=== PATIENT | female | born 1955 | race Caucasian/White ===

== ENCOUNTER 2017-12-09 11:01 | Observation (INO) ==
--- NOTE | 2017-12-09 11:19 | Emergency Department Note ---
Disposition Clinical Impression: Chest pain Disposition: Admitted As Inpatient Condition: Good General Adult HPI - General Chief complaint: ED Chest Pain Stated complaint: CP Time Seen by Provider: 12/09/17 11:04 Source: patient, family Limitations: no limitations Nursing Notes Reviewed: Yes Vital Signs Reviewed: Yes - History of Present Illness Pain Scale: 8 - Related Data Home Medications Medication Instructions Recorded Confirmed Amlodipine Besylate 10 mg PO DAILY 12/09/17 12/09/17 Cholecalciferol (D-3) [Vitamin D] 1,000 unit PO DAILY 12/09/17 12/09/17 Cyanocobalamin (Vitamin B-12) 1,000 mcg PO MOWEFR 12/09/17 12/09/17 [Vitamin B-12] Cyclobenzaprine HCl 5 mg PO BID PRN 12/09/17 12/09/17 Dicyclomine [Bentyl] 10 mg PO QID 12/09/17 12/09/17 Fluticasone Propionate Nasal 2 spr NS DAILY PRN 12/09/17 12/09/17 [Flonase] Gabapentin [Neurontin] 300 mg PO HS 12/09/17 12/09/17 Lidocaine Patch [Lidoderm 5% patch] 1 patch TD Q12H 12/09/17 12/09/17 Loratadine [Allergy Relief] 10 mg PO DAILY PRN 12/09/17 12/09/17 Meloxicam [Meloxicam] 15 mg PO DAILY 12/09/17 12/09/17 Nitroglycerin [Nitrostat] 0.4 mg SL Q5M PRN 12/09/17 12/09/17 Pantoprazole Sodium [Protonix] 40 mg PO DAILY 12/09/17 12/09/17 Sertraline [Zoloft] 100 mg PO DAILY 12/09/17 12/09/17 Warfarin [Coumadin] 3 mg PO Q48H 12/09/17 12/09/17 Warfarin [Coumadin] 4 mg PO Q48H 12/09/17 12/09/17 Allergies Allergy/AdvReac Type Severity Reaction Status Date / Time acetaminophen [From Percocet] AdvReac Nausea Verified 12/09/17 12:59 Estrogens AdvReac blood clots Verified 12/09/17 12:59 estrogens, conjugated AdvReac blood clots Verified 12/09/17 12:59 [From Premarin] Iodinated Contrast- Oral and AdvReac extremely Verified 12/09/17 12:59 IV Dye elevates [Iodinated Contrast Media - blood IV Dye] pressure, heart palpitations Medroxyprogesterone AdvReac blood clots Verified 12/09/17 12:59 Oxycodone AdvReac Nausea Verified 12/09/17 12:59 simvastatin AdvReac myalgias Verified 12/09/17 12:59 Past Medical History - Past Medical History Medical history: Reports: non-contributory, arthritis, asthma, CHF, DVT, hyperlipidemia, hypertension, osteoporosis, peripheral artery disease, pulmonary embolus Surgical history: Reports: angioplasty/stent, breast surgery, cholecystectomy, hysterectomy, orthopedic, other, other Psychiatric history: Reports: no psych history - Social History Smoking Status: Never smoker Smokeless Tobacco Status: No Alcohol use: Reports: none Drug use: Reports: none Physical Exam - General Limitations: no limitations General appearance: alert, in no apparent distress Course Vital Signs Temperature 98.3 F 12/09/17 11:03 Pulse Rate 72 12/09/17 11:03 Respiratory Rate 20 12/09/17 11:03 Blood Pressure 167/80 12/09/17 11:03 O2 Sat by Pulse Oximetry 94 12/09/17 11:03 Temperature 98.3 F 12/09/17 11:06 Pulse Rate 53 12/09/17 12:51 Respiratory Rate 18 12/09/17 14:35 Blood Pressure 135/66 12/09/17 14:35 O2 Sat by Pulse Oximetry 94 12/09/17 12:51 Oxygen Delivery Oxygen Delivery Nasal Cannula Medical Decision Making - [facility] Narrative Medical decision making narrative: Chest X-Ray 12/09/17 11:07 IMPRESSION: No acute process. D/ / Dash Nielsen MD / Dash Nielsen MD Interpreting Provider: Dash Nielsen MD 1300 hrs.: Initial troponin is negative. We talked about doing a repeat troponin on her. Her pain did start to come back her labs look good. However her onset of symptoms versus her first troponin are not within the timeframe that I expect the troponin to be positive for elevated. Talked about redoing a troponin in 2-3 hours her she prefers to be admitted so we will bring her into the hospital speaking with hospitalist for admission impression chest pain rule out ACS history of CHF stable. - Lab Data Result diagrams: 12/09/17 11:21 12/09/17 11:21 Lab Results 12/09/17 12/09/17 12/09/17 Range/Units 11:21 11:21 11:21 WBC 5.2 (4.3-11.1) K/mcL RBC 4.72 (3.82-4.97) M/mcL Hgb 13.9 (11.5-15.4) g/dL Hct 41.6 (35.3-44.9) % MCV 88.1 (83.0-100.0) fL MCH 29.4 (28.0-33.3) pg MCHC 33.4 (31.6-35.5) g/dL RDW 13.9 (11.5-14.5) % Plt Count 205 (140-400) K/mcL MPV 9.4 (9.4-12.4) fL Immature Gran % 0.2 (0-4) % Seg Neutrophils % 37.5 % Lymphocytes % 48.3 % Monocytes % 10.1 % Eosinophils % 3.1 % Basophils % 0.8 % Neutrophils # 2.0 (1.6-8.9) K/mcL Lymphocytes # 2.5 (0.6-4.6) K/mcL Monocytes # 0.5 (0.0-1.3) K/mcL Eosinophils # 0.2 (0.0-0.6) K/mcL Basophils # 0.0 (0.0-0.2) K/mcL PT 25.8 H (9.4-12.1) Seconds INR 2.4 APTT 45.2 H (26.0-36.0) Seconds D-Dimer 231 (0-500) ng/mLFEU Sodium (136-145) mEq/L Potassium (3.5-5.1) mEq/L Chloride (98-107) mEq/L Carbon Dioxide (23-29) mEq/L BUN (8-23) mg/dL Creatinine (0.60-1.20) mg/dL Est GFR ( Amer) (> 60) Est GFR (Non-Af Amer) (> 60) BUN/Creatinine Ratio (6-26) Glucose (70-105) mg/dL Calculated Osmolality (280-300) Calcium (8.6-10.3) mg/dL Troponin I (< 0.04) ng/mL B-Natriuretic Peptide 25 (Less than 100) pg/mL 12/09/ Range/Units 11:21 WBC (4.3-11.1) K/mcL RBC (3.82-4.97) M/mcL Hgb (11.5-15.4) g/dL Hct (35.3-44.9) % MCV (83.0-100.0) fL MCH (28.0-33.3) pg MCHC (31.6-35.5) g/dL RDW (11.5-14.5) % Plt Count (140-400) K/mcL MPV (9.4-12.4) fL Immature Gran % (0-4) % Seg Neutrophils % % Lymphocytes % % Monocytes % % Eosinophils % % Basophils % % Neutrophils # (1.6-8.9) K/mcL Lymphocytes # (0.6-4.6) K/mcL Monocytes # (0.0-1.3) K/mcL Eosinophils # (0.0-0.6) K/mcL Basophils # (0.0-0.2) K/mcL PT (9.4-12.1) Seconds INR APTT (26.0-36.0) Seconds D-Dimer (0-500) ng/mLFEU Sodium 139 (136-145) mEq/L Potassium 3.5 (3.5-5.1) mEq/L Chloride 106 (98-107) mEq/L Carbon Dioxide 25 (23-29) mEq/L BUN 15 (8-23) mg/dL Creatinine 0.64 (0.60-1.20) mg/dL Est GFR ( Amer) > 60 (> 60) Est GFR (Non-Af Amer) > 60 (> 60) BUN/Creatinine Ratio 23 (6-26) Glucose 124 H (70-105) mg/dL Calculated Osmolality 290 (280-300) Calcium 10.2 (8.6-10.3) mg/dL Troponin I < 0.03 (< 0.04) ng/mL B-Natriuretic Peptide (Less than 100) pg/mL Attestation Statement - Attestation Attestation: This documentation is done with the assistance of Dragon dictation. Despite efforts made to ensure accuracy, there may be inaccuracies in disability program navigator or spelling and typographical errors. I examined this patient and my medical decision-making was reviewed with the Resident Physician. I agree with the documented findings, disposition and treatment plan as described except to the extent set forth below. Patient seen and evaluated on arrival with Dr. Jo I agree with his evaluation and management plan, I supervised the care the patient's stay. Patient was going to cardiac rehabilitation today for CHF she had chest pain which she said was sharp in nature she took a nitroglycerin put on her oxygen did not change anything and agree had told her digits, over to here. She has had a history of CHF in the past coronary disease PE. She is not short of breath at this time. She has a [place] filter in place and is on Coumadin. We will do a cardiac workup also PE workup. She says she cannot take IVP dye causes her to have hypertension and headache. And then we will reassess. She is in agreement with plan. Most likely she will need admission.
[2017-12-09] MEDS ORDERED: Aspirin 81 MG TAB.CHEW PO ONE (11:20)
[2017-12-09] MEDS: Nitroglycerin 0.4 MG TAB.SUBL SL ONE ×2 (11:35→11:39)
--- NOTE | 2017-12-09 11:37 | Emergency Department Note ---
Disposition Clinical Impression: Chest pain Disposition: Admitted As Inpatient Condition: Good Referrals: Makayla Handy DO [Primary Care Provider] - Forms: ED Satisfaction Letter Time of Disposition: 14:03 Chest Pain HPI - General Chief Complaint: ED Chest Pain Stated Complaint: CP Time Seen by Provider: 12/09/17 11:04 Source: patient, family Limitations: no limitations Vital Signs Reviewed: Yes Nursing Notes Reviewed: Yes - History of Present Illness HPI Narrative: 62 yo female with history of hypertension, hyperlipidemia, and new diagnosis of CHF presents for evaluation of chest pain. Onset 45 minutes prior to arrival. Described as left chest heaviness with radiation to her back as well as to her left shoulder. Associate with diaphoresis. She took a single sublingual nitroglycerin at that time of referral prescription which did not improve her symptoms. PMH: Hypertension, hyperlipidemia, new diagnosis of CHF. Hx PE with chacorta filter in place; on coumadin. Commercial Correspondent: Dr. Howard. ROS: Positive: As above Negative: Fever, chills, nausea, vomiting, palpitations, unusual back pain, cough, no history of COPD and has never smoked, no abdominal pain, changes in bowel or bladder habits. No lightheadedness or headache. Severity scale (1-10): 0 - Related Data Home Medications Medication Instructions Recorded Confirmed Amlodipine Besylate 10 mg PO DAILY 12/09/17 12/09/17 Cholecalciferol (D-3) [Vitamin D] 1,000 unit PO DAILY 12/09/17 12/09/17 Cyanocobalamin (Vitamin B-12) 1,000 mcg PO MOWEFR 12/09/17 12/09/17 [Vitamin B-12] Cyclobenzaprine HCl 5 mg PO BID PRN 12/09/17 12/09/17 Dicyclomine [Bentyl] 10 mg PO QID 12/09/17 12/09/17 Fluticasone Propionate Nasal 2 spr NS DAILY PRN 12/09/17 12/09/17 [Flonase] Gabapentin [Neurontin] 300 mg PO HS 12/09/17 12/09/17 Lidocaine Patch [Lidoderm 5% patch] 1 patch TD Q12H 12/09/17 12/09/17 Loratadine [Allergy Relief] 10 mg PO DAILY PRN 12/09/17 12/09/17 Meloxicam [Meloxicam] 15 mg PO DAILY 12/09/17 12/09/17 Nitroglycerin [Nitrostat] 0.4 mg SL Q5M PRN 12/09/17 12/09/17 Pantoprazole Sodium [Protonix] 40 mg PO DAILY 12/09/17 12/09/17 Sertraline [Zoloft] 100 mg PO DAILY 12/09/17 12/09/17 Warfarin [Coumadin] 3 mg PO Q48H 12/09/17 12/09/17 Warfarin [Coumadin] 4 mg PO Q48H 12/09/17 12/09/17 Allergies Allergy/AdvReac Type Severity Reaction Status Date / Time acetaminophen [From Percocet] AdvReac Nausea Verified 12/09/17 12:59 Estrogens AdvReac blood clots Verified 12/09/17 12:59 estrogens, conjugated AdvReac blood clots Verified 12/09/17 12:59 [From Premarin] Iodinated Contrast- Oral and AdvReac extremely Verified 12/09/17 12:59 IV Dye elevates [Iodinated Contrast Media - blood IV Dye] pressure, heart palpitations Medroxyprogesterone AdvReac blood clots Verified 12/09/17 12:59 Oxycodone AdvReac Nausea Verified 12/09/17 12:59 simvastatin AdvReac myalgias Verified 12/09/17 12:59 All systems ED: reviewed and negative except as stated. Review of Systems: As Per HPI Chest Pain PMH - Past Medical History Medical history: Reports: non-contributory, arthritis, asthma, CHF, DVT, hyperlipidemia, hypertension, osteoporosis, peripheral artery disease, pulmonary embolus Surgical history: Reports: angioplasty/stent, breast surgery, cholecystectomy, hysterectomy, orthopedic, other, other Psychiatric history: Reports: no psych history - Social History Smoking Status: Never smoker Alcohol use: Reports: none Drug use: Reports: none Physical Exam Vital Signs Reviewed General: Patient is alert, oriented, and in no acute distress. Head: atraumatic, normocephalic Eye: normal appearance, no scleral icterus, no conjunctival injection ENT: mucous membranes moist, normal external ear exam Neck: normal inspection, trachea midline, full ROM Chest: normal inspection, symmetric chest rise Respiratory: Good respiratory effort. Bilateral breath sounds are clear without wheezing, crackles, or rhonchi. Cardiovascular: Regular rate and rhythm. No clicks, rubs, gallops. Systolic murmur. Normal heart sounds. Abdomen: Bowel sounds present normoactive x-4 quadrants. Abdomen is soft, nondistended, and nontender. No guarding or rebound. No organomegaly noted. Musculoskeletal: Spontaneously moving all extremities. Skin: warm, dry, intact. Neuro: Alert and oriented x4. Sensation light touch intact. Psych: Patient's affect is appropriate for situation. - General Limitations: no limitations General appearance: alert, in no apparent distress Course Course Narrative: PERC (+) by age, heart rate, history. Wells PE score 3.0 by heart rate, O2, history. Will d-dimer. EKG dated 12/09/17 at 11:11 interpreted as sinus rhythm with rate of 63. Normal intervals of MT 179, QRS was 6, QTC 433. Normal axis. T-wave inversion in leads V1 and V2 which are not new compared to previous EKG. Flattening T-wave in lead aVL not new compared to previous EKG. Compared to previous EKG dated showing no acute ischemic changes comparison. Patient took a signal sublingual nitroglycerin which did not improve her symptoms. Will repeat nitroglycerin trial as tolerated by her blood pressure. No acute ischemic changes on EKG. Chest x-ray unremarkable. Patient's initial troponin is within normal limits. This is, however, within the window with certainty. D-dimer lower limit of normal. EKG shows no acute ischemic changes. Patient chest pain improved with initial administration of morphine. Medicines returned; will re-dose morphine. I discussed the above with the patient and her family bedside. She agrees to admission for continued evaluation and management. Next I discussed the patient with the admitting hospitalist, Dr. Garcia, who agrees to accept the patient for chest pain rule out ACS. Chest X-Ray 12/09/17 11:07 IMPRESSION: No acute process. D/ / Dash Nielsen MD / Dash Nielsen MD Interpreting Provider: Dash Nielsen MD Vital Signs Temperature 98.3 F 12/09/17 11:03 Pulse Rate 72 12/09/17 11:03 Respiratory Rate 20 12/09/17 11:03 Blood Pressure 167/80 12/09/17 11:03 O2 Sat by Pulse Oximetry 94 12/09/17 11:03 Temperature 98.3 F 12/09/17 11:06 Pulse Rate 53 12/09/17 12:51 Respiratory Rate 18 12/09/17 12:51 Blood Pressure 133/70 12/09/17 12:51 O2 Sat by Pulse Oximetry 94 12/09/17 12:51 Oxygen Delivery Oxygen Delivery Nasal Cannula Chest Pain - Lab Data Result diagrams: 12/09/17 11:21 12/09/17 11:21 Lab Results 12/09/17 12/09/17 12/09/17 Range/Units 11:21 11:21 11:21 WBC 5.2 (4.3-11.1) K/mcL RBC 4.72 (3.82-4.97) M/mcL Hgb 13.9 (11.5-15.4) g/dL Hct 41.6 (35.3-44.9) % MCV 88.1 (83.0-100.0) fL MCH 29.4 (28.0-33.3) pg MCHC 33.4 (31.6-35.5) g/dL RDW 13.9 (11.5-14.5) % Plt Count 205 (140-400) K/mcL MPV 9.4 (9.4-12.4) fL Immature Gran % 0.2 (0-4) % Seg Neutrophils % 37.5 % Lymphocytes % 48.3 % Monocytes % 10.1 % Eosinophils % 3.1 % Basophils % 0.8 % Neutrophils # 2.0 (1.6-8.9) K/mcL Lymphocytes # 2.5 (0.6-4.6) K/mcL Monocytes # 0.5 (0.0-1.3) K/mcL Eosinophils # 0.2 (0.0-0.6) K/mcL Basophils # 0.0 (0.0-0.2) K/mcL PT 25.8 H (9.4-12.1) Seconds INR 2.4 APTT 45.2 H (26.0-36.0) Seconds D-Dimer 231 (0-500) ng/mLFEU Sodium (136-145) mEq/L Potassium (3.5-5.1) mEq/L Chloride (98-107) mEq/L Carbon Dioxide (23-29) mEq/L BUN (8-23) mg/dL Creatinine (0.60-1.20) mg/dL Est GFR ( Amer) (> 60) Est GFR (Non-Af Amer) (> 60) BUN/Creatinine Ratio (6-26) Glucose (70-105) mg/dL Calculated Osmolality (280-300) Calcium (8.6-10.3) mg/dL Troponin I (< 0.04) ng/mL B-Natriuretic Peptide 25 (Less than 100) pg/mL 12/09/17 Range/Units 11:21 WBC (4.3-11.1) K/mcL RBC (3.82-4.97) M/mcL Hgb (11.5-15.4) g/dL Hct (35.3-44.9) % MCV (83.0-100.0) fL MCH (28.0-33.3) pg MCHC (31.6-35.5) g/dL RDW (11.5-14.5) % Plt Count (140-400) K/mcL MPV (9.4-12.4) fL Immature Gran % (0-4) % Seg Neutrophils % % Lymphocytes % % Monocytes % % Eosinophils % % Basophils % % Neutrophils # (1.6-8.9) K/mcL Lymphocytes # (0.6-4.6) K/mcL Monocytes # (0.0-1.3) K/mcL Eosinophils # (0.0-0.6) K/mcL Basophils # (0.0-0.2) K/mcL PT (9.4-12.1) Seconds INR APTT (26.0-36.0) Seconds D-Dimer (0-500) ng/mLFEU Sodium 139 (136-145) mEq/L Potassium 3.5 (3.5-5.1) mEq/L Chloride 106 (98-107) mEq/L Carbon Dioxide 25 (23-29) mEq/L BUN 15 (8-23) mg/dL Creatinine 0.64 (0.60-1.20) mg/dL Est GFR ( Amer) > 60 (> 60) Est GFR (Non-Af Amer) > 60 (> 60) BUN/Creatinine Ratio 23 (6-26) Glucose 124 H (70-105) mg/dL Calculated Osmolality 290 (280-300) Calcium 10.2 (8.6-10.3) mg/dL Troponin I < 0.03 (< 0.04) ng/mL B-Natriuretic Peptide (Less than 100) pg/mL Heart Score - Score History: Moderately Suspicious EKG: Non Specific repolarisation Disturbance Age: 45-65 Risk Factors: Equal/Greater than 3 risk factor or history of atherosclerotic disease Troponin: Less than normal limit HEART Score Total: 5
[2017-12-09 11:42] LABS: Basophils % 0.8 %; Eosinophils # 0.2 K/mcL (0.0-0.6); Eosinophils % 3.1 %; Hematocrit 41.6 % (35.3-44.9); Hemoglobin 13.9 g/dL (11.5-15.4); Immature Granulocytes % 0.2 % (0-4); Lymphocytes # 2.5 K/mcL (0.6-4.6); Lymphocytes % 48.3 %; Mean Corpuscular HGB Conc 33.4 g/dL (31.6-35.5); Mean Corpuscular Hemoglobin 29.4 pg (28.0-33.3); Mean Corpuscular Volume 88.1 fL (83.0-100.0); Mean Platelet Volume 9.4 fL (9.4-12.4); Monocytes # 0.5 K/mcL (0.0-1.3); Monocytes % 10.1 %; Platelet Count 205 K/mcL (140-400); Red Blood Count 4.72 M/mcL (3.82-4.97); Red Cell Distribution Width 13.9 % (11.5-14.5); Segmented Neutrophils % 37.5 %
[2017-12-09 11:51] LABS: INR 2.4; Prothrombin Time 25.8 Seconds (9.4-12.1)
[2017-12-09] MEDS ORDERED: *HR* Morphine 2 MG/ML SYRINGE IVP ONE ×2 (11:53→13:34)
[2017-12-09 11:54] LABS: Activated Partial Thrombo Time 45.2 Seconds (26.0-36.0)
[2017-12-09] MEDS ORDERED: Ondansetron 4 MG/2 ML VIAL IVP ONE (11:54)
[2017-12-09 11:55] LABS: Troponin I < 0.03 ng/mL (< 0.04)
[2017-12-09 11:56] LABS: BUN/Creatinine Ratio 23 (6-26); Blood Urea Nitrogen 15 mg/dL (8-23); Calcium 10.2 mg/dL (8.6-10.3); Carbon Dioxide 25 mEq/L (23-29); Chloride 106 mEq/L (98-107); Glucose 124 mg/dL (70-105); Osmolality,Calculated 290 (280-300); Potassium 3.5 mEq/L (3.5-5.1); Sodium 139 mEq/L (136-145); eGFR For African Americans > 60 (> 60); eGFR For Non-African Americans > 60 (> 60)
[2017-12-09] MEDS ORDERED: Naloxone 0.4 MG/ML INJ IVP PRN (14:07)
[2017-12-09] MEDS ORDERED: Fluticasone Propionate Nasal 50 MCG/SPRAY BOTTLE NS PRN (14:09)
[2017-12-09] MEDS ORDERED: Nitroglycerin 0.4 MG TAB.SUBL SL PRN (14:09)
[2017-12-09] MEDS ORDERED: Loratadine 10 MG TABLET PO PRN (14:09)
[2017-12-09] MEDS ORDERED: Cyanocobalamin (B-12) 1,000 MCG TABLET PO SCH (14:15)
[2017-12-09] MEDS ORDERED: *HR* Warfarin 2 MG TABLET PO SCH (14:15)
--- NOTE | 2017-12-09 14:22 | Internal Med History&Physical ---
Date of Encounter: 12/09/17 Time of Encounter: 14:20 Internal Medicine - H&P: HPI Chief complaint: chest pain Admitted From: Home Plans for Post Hospital Care: Home History of present illness: Ms. King is a 62 year old female with history of recently diagnosed heart failure who was getting ready to go to cardiopulmonary rehabilitation today when she developed chest pain. Described it as left-sided and radiated to her back as well as her left shoulder. She took one nitroglycerin sublingual that did not help much. Since nausea but no vomiting. Denied any headache no blurry vision no abdominal pain no changes in bowel movement. Past Med Surg Social Fam HX - Past Medical History Medical history: non-contributory, arthritis, asthma, CHF, DVT, hyperlipidemia, hypertension, osteoporosis, peripheral artery disease, pulmonary embolus Additional medical history: PE,Heart murmur,Atrial septal aneurysm with shunt, sleep apnea Psychiatric history: no psych history - Past Surgical History Surgical History: angioplasty/stent, breast surgery, cholecystectomy, hysterectomy, orthopedic, other, other Additional surgical history: chacorta filter,colonoscopy - Social History Smoking Status: Never smoker Smokeless Tobacco Status: No Alcohol use: none Drug use: none - Family History Father Living Status: Hx Family Cardiac Disorders: Yes (Mother, Father had aneurysm) Hx Family Respiratory Disorders: Yes (mother-copd) Hx Family Cancer: Yes (father-lung, aunts-breast cancer) Hx Family GI Disorders: Yes (mother-diverticulitis) Hx Family Endocrine Disorder: Yes (mother-hypothyroidism) Hx Family Neuromuscular Disorders: Yes (mother and brother-neuropathy) Hx Family Neurologic Disorders: Yes (mother-TIA's) Hx Family HEENT Disorders: No Hx Family Autoimmune Disorders: Yes (brother-lupus) Internal Medicine - H&P: Meds Amlodipine Besylate 10 mg PO DAILY 12/09/17 [History] Cholecalciferol (D-3) [Vitamin D] 1,000 unit PO DAILY 12/09/17 [History] Cyanocobalamin (Vitamin B-12) [Vitamin B-12] 1,000 mcg PO MOWEFR 12/09/17 [ History] Cyclobenzaprine HCl 5 mg PO BID PRN 12/09/17 [History] Dicyclomine [Bentyl] 10 mg PO QID 12/09/17 [History] Fluticasone Propionate Nasal [Flonase] 2 spr NS DAILY PRN 12/09/17 [History] Gabapentin [Neurontin] 300 mg PO HS 12/09/17 [History] Lidocaine Patch [Lidoderm 5% patch] 1 patch TD Q12H 12/09/17 [History] Loratadine [Allergy Relief] 10 mg PO DAILY PRN 12/09/17 [History] Meloxicam [Meloxicam] 15 mg PO DAILY 12/09/17 [History] Nitroglycerin [Nitrostat] 0.4 mg SL Q5M PRN 12/09/17 [History] Pantoprazole Sodium [Protonix] 40 mg PO DAILY 12/09/17 [History] Sertraline [Zoloft] 100 mg PO DAILY 12/09/17 [History] Warfarin [Coumadin] 3 mg PO Q48H 12/09/17 [History] Warfarin [Coumadin] 4 mg PO Q48H 12/09/17 [History] 3 Allergy/AdvReac Type Severity Reaction Status Date / Time acetaminophen [From Percocet] AdvReac Nausea Verified 12/09/17 12:59 Estrogens AdvReac blood clots Verified 12/09/17 12:59 estrogens, conjugated AdvReac blood clots Verified 12/09/17 12:59 [From Premarin] Iodinated Contrast- Oral and AdvReac extremely Verified 12/09/17 12:59 IV Dye elevates [Iodinated Contrast Media - blood IV Dye] pressure, heart palpitations Medroxyprogesterone AdvReac blood clots Verified 12/09/17 12:59 Oxycodone AdvReac Nausea Verified 12/09/17 12:59 simvastatin AdvReac myalgias Verified 12/09/17 12:59 All Systems PM: A 10-system review of systems was performed and is negative for pertinent findings except as documented above in the HPI. - Constitutional Vitals: Temp Pulse Resp BP Pulse Ox 98.3 F 53 18 133/70 94 12/09/17 11:06 12/09/17 12:51 12/09/17 12:51 12/09/17 12:51 12/09/17 12:51 - Head Head exam: Present: atraumatic, normocephalic - Eye Eye exam: Present: PERRL, conjuntiva pink, sclera anicteric Pupils: Present: PERRL - Neck Neck exam general surgery: Present: supple, trachea midline. Absent: lymphadenopathy - Respiratory Respiratory exam: Present: CTAB. Absent: accessory muscle use, rales, rhonchi, wheezes - Cardiovascular Cardiovascular exam: Present: RRR, +S1, +S2. Absent: diastolic murmur, gallop, rubs, systolic murmur - GI/Abdominal GI/Abdominal exam: Present: normal bowel sounds, soft, no peritoneal signs. Absent: distended, tenderness - Extremities Exam Extremities exam: Present: warm, radial pulses palpable and symmetrical. Absent : calf tenderness, cyanotic, pedal edema - Neurological Exam Neurological exam: Present: CN II-XII intact, oriented X3, no focal deficits. Absent: pronater drift, facial droop, speech deficit Internal Med - H&P Results - Labs CBC & Chem 7: 12/09/17 11:21 12/09/17 11:21 - Assessment and plan (1) Chest pain Current Visit: Yes Status: Acute Assessment and plan: To rule out acute coronary syndrome Initial workup negative Telemetry monitoring Serial troponins Q6h for 3 sets Aspirin, metoprolol, Lipitor, nitrates when necessary We will get cardiac nuclear stress test for further evaluation EKG in the morning Fasting lipid profile Follow clinically Qualifiers: Qualified Code(s): R07.9 - Chest pain, unspecified (2) Chest pain Current Visit: Yes Status: Acute Qualifiers: Qualified Code(s): R07.9 - Chest pain, unspecified (3) Congestive heart failure Current Visit: Yes Status: Acute Assessment and plan: Recently diagnosed. Within an echo report Patient is not volume overloaded Continue current management Qualifiers: Qualified Code(s): I50.9 - Heart failure, unspecified (4) Personal history of DVT (deep vein thrombosis) Current Visit: Yes Status: Acute Assessment and plan: On chronic anticoagulation with Coumadin INR is therapeutic. Monitor (5) History of pulmonary embolism Current Visit: Yes Status: Acute Assessment and plan: Continue Coumadin for goal INR 2-3 (6) Obstructive sleep apnea Current Visit: Yes Status: Acute Assessment and plan: Continue CPAP daily at bedtime (7) History of hypertension Current Visit: Yes Status: Acute (8) Hyperlipidemia Current Visit: Yes Status: Acute Qualifiers: Qualified Code(s): E78.5 - Hyperlipidemia, unspecified (9) DVT prophylaxis Current Visit: Yes Status: Acute Assessment and plan: Already on Coumadin - Time Spent With Patient Total time spent is greater than 50% in coordination of care (as documented) at patient's floor/unit and/or counseling patient:
[2017-12-09] MEDS ORDERED: Warfarin perPT PO PRN (18:00)
[2017-12-09] MEDS ORDERED: *HR* Warfarin 2 MG TABLET PO ONE (18:00)
[2017-12-09] MEDS: Gabapentin 300 MG CAPSULE PO SCH (20:04)
[2017-12-10] MEDS ORDERED: Regadenoson 0.4 MG/5 ML SYRINGE IVP ONE (05:12)
[2017-12-10 05:37] LABS: Basophils # 0.1 K/mcL (0.0-0.2); Basophils % 0.9 %; Eosinophils # 0.2 K/mcL (0.0-0.6); Eosinophils % 4.1 %; Hematocrit 39.6 % (35.3-44.9); Hemoglobin 13.4 g/dL (11.5-15.4); Immature Granulocytes % 0.2 % (0-4); Lymphocytes # 2.3 K/mcL (0.6-4.6); Lymphocytes % 41.7 %; Mean Corpuscular HGB Conc 33.8 g/dL (31.6-35.5); Mean Corpuscular Hemoglobin 30.5 pg (28.0-33.3); Mean Corpuscular Volume 90.2 fL (83.0-100.0); Mean Platelet Volume 9.2 fL (9.4-12.4); Monocytes # 0.7 K/mcL (0.0-1.3); Monocytes % 12.1 %; Neutrophils # 2.3 K/mcL (1.6-8.9); Platelet Count 190 K/mcL (140-400); Red Blood Count 4.39 M/mcL (3.82-4.97); Red Cell Distribution Width 13.8 % (11.5-14.5)
[2017-12-10 05:42] LABS: INR 2.7; Prothrombin Time 29.8 Seconds (9.4-12.1)
[2017-12-10 05:54] LABS: BUN/Creatinine Ratio 25 (6-26); Blood Urea Nitrogen 17 mg/dL (8-23); Calcium 9.5 mg/dL (8.6-10.3); Carbon Dioxide 28 mEq/L (23-29); Chloride 106 mEq/L (98-107); Chol/HDL Ratio 6.1 (0-4.9); Cholesterol 212 mg/dL (< 200); Glucose 113 mg/dL (70-105); HDL Cholesterol 35 mg/dL (40-59); LDL Cholesterol,Calculated 122 mg/dL (0-99); Magnesium 2.1 mg/dL (1.6-2.6); Osmolality,Calculated 290 (280-300); Phosphorous 3.6 mg/dL (2.7-4.5); Potassium 3.6 mEq/L (3.5-5.1); Sodium 139 mEq/L (136-145); Triglycerides 274 mg/dL (< 150); eGFR For African Americans > 60 (> 60); eGFR For Non-African Americans > 60 (> 60)
--- NOTE | 2017-12-10 09:19 | Electrocardiograph Report ---
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
[2017-12-10] MEDS: Cholecalciferol (D-3) 1,000 UNIT TABLET PO SCH (10:26)
[2017-12-10] MEDS: amLODIPine 5 MG TABLET PO SCH (10:26)
--- NOTE | 2017-12-10 14:21 | Discharge Summary ---
Orders not resulted at time of discharge: Pending orders 12/10/17 06:00 ECG 12 lead ECG [ECG] AM 0612/10/17 06:30 NM steffen perf SPECT multi [NM] Routine 12/11/17 04:00 PT/INR [Prothrombin Time INR] [COAG] AM 0400 12/12/17 04:00 PT/INR [Prothrombin Time INR] [COAG] AM 0400 12/13/17 04:00 PT/INR [Prothrombin Time INR] [COAG] AM 0400 12/14/17 04:00 PT/INR [Prothrombin Time INR] [COAG] AM 040 Date of Encounter: 12/10/17 Time of Encounter: 14:18 - Discharge Diagnosis (1) Chest pain Priority: Primary Status: Acute (2) Congestive heart failure Priority: Secondary Status: Acute Qualifiers: Heart failure type: unspecified Heart failure chronicity: chronic Qualified Code(s): I50.9 - Heart failure, unspecified (3) History of hypertension Priority: Secondary Status: Acute (4) History of pulmonary embolism Priority: Secondary Status: Acute (5) Hyperlipidemia Priority: Secondary Status: Acute Qualifiers: Hyperlipidemia type: unspecified Qualified Code(s): E78.5 - Hyperlipidemia , unspecified (6) Obstructive sleep apnea Priority: Secondary Status: Acute (7) Personal history of DVT (deep vein thrombosis) Priority: Secondary Status: Acute Hospital course: Ms. King is a 62 year old female history of arthritis asthma CHF DVT hyperlipidemia hypertension osteoporosis PAD presented to the ER with left- sided chest pain that radiated to her back and left shoulder. She did take nitroglycerin but it did not help. Chest x-ray no acute process. Troponins were negative patient underwent cardiac stress test which was negative for any ischemia or infarct EKG was sinus rhythm no ST-T wave abnormalities. D-dimer within normal limits patient is adequately anticoagulated on Coumadin with INR 2.7 Patient is unable to take statins due to myalgias. We will continue with home medications advised patient to follow-up with primary care provider/ cardiology since these providers know her best and can adjust medication as needed. Advised patient to return to ER if chest pain recurs. Patient has not had any chest pain during admission She is hemodynamically stable at this time and ready for discharge Discharge discussed with: patient - Time Spent with Patient Total time spent providing and/or coordinating discharge services: - Discharge Medications Home Medications: Amlodipine Besylate 10 mg PO DAILY 12/09/17 [History] Cholecalciferol (D-3) [Vitamin D] 1,000 unit PO DAILY 12/09/17 [History] Cyanocobalamin (Vitamin B-12) [Vitamin B-12] 1,000 mcg PO MOWEFR 12/09/17 [ History] Cyclobenzaprine HCl 5 mg PO BID PRN 12/09/17 [History] Dicyclomine [Bentyl] 10 mg PO QID 12/09/17 [History] Fluticasone Propionate Nasal [Flonase] 2 spr NS DAILY PRN 12/09/17 [History] Gabapentin [Neurontin] 300 mg PO HS 12/09/17 [History] Lidocaine Patch [Lidoderm 5% patch] 1 patch TD Q12H 12/09/17 [History] Loratadine [Allergy Relief] 10 mg PO DAILY PRN 12/09/17 [History] Meloxicam 15 mg PO DAILY 12/09/17 [History] Nitroglycerin [Nitrostat] 0.4 mg SL Q5M PRN 12/09/17 [History] Pantoprazole Sodium [Protonix] 40 mg PO DAILY 12/09/17 [History] Pantoprazole [Protonix] 40 mg IV DAILY 12/09/17 [History] Sertraline [Zoloft] 100 mg PO DAILY 12/09/17 [History] Sertraline [Zoloft] 100 mg PO DAILY 12/09/17 [History] Warfarin [Coumadin] 3 mg PO Q48H 12/09/17 [History] Warfarin [Coumadin] 4 mg PO Q48H 12/09/17 [History] Allergies/Adverse Reactions: 3 Allergy/AdvReac Type Severity Reaction Status Date / Time acetaminophen [From Percocet] AdvReac Nausea Verified 12/09/17 12:59 Estrogens AdvReac blood clots Verified 12/09/17 12:59 estrogens, conjugated AdvReac blood clots Verified 12/09/17 12:59 [From Premarin] Iodinated Contrast- Oral and AdvReac extremely Verified 12/09/17 12:59 IV Dye elevates [Iodinated Contrast Media - blood IV Dye] pressure, heart palpitations Medroxyprogesterone AdvReac blood clots Verified 12/09/17 12:59 Oxycodone AdvReac Nausea Verified 12/09/17 12:59 simvastatin AdvReac myalgias Verified 12/09/17 12:59 Date of admission: 12/09/17 13:54 Primary care physician: Makayla Handy DO Discharging clinician: Macy Barba Anticipated date of discharge: 12/10/17 - Constitutional Vitals: Temp Pulse Resp BP Pulse Ox 98.2 F 54 16 126/72 90 12/10/17 11:06 12/10/17 11:06 12/10/17 11:06 12/10/17 11:06 12/10/17 11:06 General appearance: Present: A&O X 3 - Head Head exam: Present: atraumatic, normocephalic - Eye Eye exam: Present: PERRL, conjuntiva pink, sclera anicteric Pupils: Present: PERRL - Neck Neck exam general surgery: Present: supple, trachea midline. Absent: lymphadenopathy - Respiratory Respiratory exam: Present: CTAB. Absent: accessory muscle use, rales, rhonchi, wheezes - Cardiovascular Cardiovascular exam: Present: RRR, +S1, +S2. Absent: diastolic murmur, gallop, rubs, systolic murmur - GI/Abdominal GI/Abdominal exam: Present: normal bowel sounds, soft, no peritoneal signs. Absent: distended, tenderness - Extremities Exam Extremities exam: Present: warm, radial pulses palpable and symmetrical. Absent : calf tenderness, cyanotic, pedal edema - Neurological Exam Neurological exam: Present: CN II-XII intact, oriented X3, no focal deficits. Absent: pronater drift, facial droop, speech deficit - Skin Skin exam: Present: dry, intact - Patient Status Disposition: Home, Self-Care Condition: Good Overall status at discharge: patient is back to baseline - Discharge Instructions Instructions: Chest Pain (DC) Follow Up With: Makayla Handy DO [Primary Care Provider] - Forms: ED Satisfaction Letter Additional Instructions: Follow-up appointments: If there is not an appointment listed below, please call your physician and schedule a follow-up appointment. If you have congestive heart failure and your symptoms return, make an appointment with your physician. Medication List: Carry an up to date list of medications you are taking at all time. We have given you an updated medication list including any new medications that you have been prescribed. Please provide that list to your primary provider Symptoms: If your condition changes or you experience any of the following symptoms, notify your physician immediately: Unusual or worsening pain, fever, persistent nausea and vomiting, bleeding, increase in swelling (especially in your legs), sudden weight gain, extreme dizziness, chest pain, increased drainage or redness from a wound or incision. Go to the emergency department if you experience a problem with breathing. Weights: If you have a history of swelling or shortness of breath, weigh yourself daily and notify your physician if you have a weight gain of two or more pounds in one day or 5 or more pounds in a week. If you experience any of the warning signs for stroke: Sudden numbness or weakness of the face, arm or leg; especially on one side of the body, sudden confusion, trouble speaking or understanding, sudden trouble seeing in one or both eyes, sudden trouble walking, dizziness, loss of balance or coordination, sudden sever headache with no cause; Call 911 or go to the emergency room. Stroke is a medical emergency. Some risk factors for stroke: Age, cigarette smoking, diabetes, excessive alcohol consumption, family history , high blood pressure, overweight, physical inactivity, prior stroke, heart attack, diagnosis of carotid artery stenosis or other artery disease. If you smoke, STOP: Smoking or tobacco use significantly increases your risk of heart and lung disease. Your chance of disease greatly increases if you continue to smoke. For more information, call the [place] tobacco quit line for smoking cessation QUIT-NOW ( ) - Diet and Activity Activity: wear oxygen at night Diet: low fat, low cholesterol - VTE Documentation of Mechanical Device: Intermittent pneumatic compression device
--- NOTE | 2017-12-10 15:16 | Internal Med Progress Note ---
Date of Encounter: 12/10/17 Time of Encounter: 15:14 - Assessment and plan (1) Chest pain Current Visit: Yes Status: Acute Assessment and plan: 1 patient underwent cardiac stress test which was negative for ischemia or infarct no chest pain at this time Asians unable to take statins due to myalgias diet control Continues cardiac monitoring Qualifiers: Chest pain type: unspecified Qualified Code(s): R07.9 - Chest pain, unspecified (2) Congestive heart failure Current Visit: Yes Status: Acute Assessment and plan: 1 does not appear to be fluid overloaded chest x-ray within normal limits We will check an echo patient does have low SPO2 Qualifiers: Heart failure type: unspecified Heart failure chronicity: chronic Qualified Code(s): I50.9 - Heart failure, unspecified (3) History of hypertension Current Visit: Yes Status: Acute Assessment and plan: Presently controlled we will continue his home medications (4) History of pulmonary embolism Current Visit: Yes Status: Acute Assessment and plan: Patient is adequately anticoagulated on Coumadin 2.7 d-dimer within normal limits (5) Hyperlipidemia Current Visit: Yes Status: Acute Assessment and plan: Patient unable to tolerate statins diet control Qualifiers: Hyperlipidemia type: unspecified Qualified Code(s): E78.5 - Hyperlipidemia , unspecified (6) Obstructive sleep apnea Current Visit: Yes Status: Acute Assessment and plan: Continue with CPAP (7) Personal history of DVT (deep vein thrombosis) Current Visit: Yes Status: Acute Assessment and plan: Continue with Coumadin - Time Spent With Patient Total time spent is greater than 50% in coordination of care (as documented) at patient's floor/unit and/or counseling patient: - Subjective Interval history: As the patient is not having any chest pain she did undergo a reticulocyte stress test which was negative for ischemia or infarct however did note the patient's had some low, I suspect that this may be chronic however I will check a echo induced 6 minute walk. Did discuss with this patient to verbalized understanding and agreement. - Constitutional Vitals: Temp Pulse Resp BP Pulse Ox 98.2 F 55 16 126/72 92 12/10/17 11:06 12/10/17 14:42 12/10/17 11:06 12/10/17 11:06 12/10/17 14:42 General appearance: Present: A&O X 3 - Head Head exam: Present: atraumatic, normocephalic - Eye Eye exam: Present: PERRL, conjuntiva pink, sclera anicteric Pupils: Present: PERRL - Neck Neck exam general surgery: Present: supple, trachea midline. Absent: lymphadenopathy - Respiratory Respiratory exam: Present: CTAB. Absent: accessory muscle use, rales, rhonchi, wheezes - Cardiovascular Cardiovascular exam: Present: RRR, +S1, +S2. Absent: diastolic murmur, gallop, rubs, systolic murmur - GI/Abdominal GI/Abdominal exam: Present: normal bowel sounds, soft, no peritoneal signs. Absent: distended, tenderness - Extremities Exam Extremities exam: Present: warm, radial pulses palpable and symmetrical. Absent : calf tenderness, cyanotic, pedal edema - Neurological Exam Neurological exam: Present: CN II-XII intact, oriented X3, no focal deficits. Absent: pronater drift, facial droop, speech deficit - Skin Skin exam: Present: dry, intact Internal Medicine: Result - Labs CBC & Chem 7: 12/10/17 05:20 12/10/17 05:20 Labs: Short CBC 12/10/17 Range/Units 05:20 WBC 5.6 (4.3-11.1) K/mcL Hgb 13.4 (11.5-15.4) g/dL Hct 39.6 (35.3-44.9) % Plt Count 190 (140-400) K/mcL Neutrophils # 2.3 (1.6-8.9) K/mcL BMP 12/10/17 05:20 Sodium 139 Potassium 3.6 Chloride 106 Carbon Dioxide 28 BUN 17 Creatinine 0.67 Glucose 113 H Calcium 9.5 Cardiac Enzymes 12/09/17 12/09/17 12/10/17 Range/Units 17:14 22:56 05:20 Troponin I < 0.03 < 0.03 < 0.03 (< 0.04) ng/mL - ABG Interpretation ABG results: PT/INR, D-dimer PT 29.8 Seconds (9.4-12.1) H 12/10/17 05:20 D-Dimer 231 ng/mLFEU (0-500) 12/09/17 11:21 - VTE Documentation of Mechanical Device: Intermittent pneumatic compression device Consult Discharge Plan - Plan Instructions: Chest Pain (DC) Additional Instructions: Follow-up appointments: If there is not an appointment listed below, please call your physician and schedule a follow-up appointment. If you have congestive heart failure and your symptoms return, make an appointment with your physician. Medication List: Carry an up to date list of medications you are taking at all time. We have given you an updated medication list including any new medications that you have been prescribed. Please provide that list to your primary provider Symptoms: If your condition changes or you experience any of the following symptoms, notify your physician immediately: Unusual or worsening pain, fever, persistent nausea and vomiting, bleeding, increase in swelling (especially in your legs), sudden weight gain, extreme dizziness, chest pain, increased drainage or redness from a wound or incision. Go to the emergency department if you experience a problem with breathing. Weights: If you have a history of swelling or shortness of breath, weigh yourself daily and notify your physician if you have a weight gain of two or more pounds in one day or 5 or more pounds in a week. If you experience any of the warning signs for stroke: Sudden numbness or weakness of the face, arm or leg; especially on one side of the body, sudden confusion, trouble speaking or understanding, sudden trouble seeing in one or both eyes, sudden trouble walking, dizziness, loss of balance or coordination, sudden sever headache with no cause; Call 911 or go to the emergency room. Stroke is a medical emergency. Some risk factors for stroke: Age, cigarette smoking, diabetes, excessive alcohol consumption, family history , high blood pressure, overweight, physical inactivity, prior stroke, heart attack, diagnosis of carotid artery stenosis or other artery disease. If you smoke, STOP: Smoking or tobacco use significantly increases your risk of heart and lung disease. Your chance of disease greatly increases if you continue to smoke. For more information, call the [place] tobacco quit line for smoking cessation QUIT-NOW ( ) Referrals: Makayla Handy DO [Primary Care Provider] -
[2017-12-10] MEDS: Ipratropium/Albuterol Neb 3 ML IH SCH ×2 (16:50→22:40)
[2017-12-10] MEDS ORDERED: *HR* Warfarin 2 MG TABLET PO ONE (18:00)
[2017-12-10] MEDS: Gabapentin 300 MG CAPSULE PO SCH (20:46)
[2017-12-10] MEDS ORDERED: Gabapentin 300 MG CAPSULE PO SCH (21:04)
[2017-12-10] MEDS ORDERED: Gabapentin 300 MG CAPSULE PO ONE (21:05)
[2017-12-11] MEDS: Ipratropium/Albuterol Neb 3 ML IH SCH ×2 (03:23→10:46)
[2017-12-11 05:59] LABS: Prothrombin Time 32.7 Seconds (9.4-12.1)
[2017-12-11] MEDS: Cholecalciferol (D-3) 1,000 UNIT TABLET PO SCH (08:58)
[2017-12-11] MEDS: amLODIPine 5 MG TABLET PO SCH (08:58)
[2017-12-11 12:03] VITALS: BP 143/72
--- NOTE | 2017-12-11 14:01 | Discharge Summary ---
- NOTES TO OUTPATIENT PROVIDER Notes to Outpatient Provider: H and presented with chest pain troponins were negative 3 she underwent cardiac stress test which was negative for any ischemia or infarct. She did qualify for home O2 Orders not resulted at time of discharge: Pending orders 12/10/17 06:00 ECG 12 lead ECG [ECG] AM 0600 12/10/17 06:30 NM steffen perf SPECT multi [NM] Routine 12/12/17 04:00 PT/INR [Prothrombin Time INR] [COAG] AM 0400 12/13/17 04:00 PT/INR [Prothrombin Time INR] [COAG] AM 0400 12/14/17 04:00 PT/INR [Prothrombin Time INR] [COAG] AM 040 Date of Encounter: 12/11/17 Time of Encounter: 14:01 - Discharge Diagnosis (1) Chest pain Priority: Primary Status: Acute Qualifiers: Chest pain type: unspecified Qualified Code(s): R07.9 - Chest pain, unspecified (2) Congestive heart failure Priority: Secondary Status: Acute Qualifiers: Heart failure type: unspecified Heart failure chronicity: chronic Qualified Code(s): I50.9 - Heart failure, unspecified (3) History of hypertension Priority: Secondary Status: Acute (4) History of pulmonary embolism Priority: Secondary Status: Acute (5) Hyperlipidemia Priority: Secondary Status: Acute Qualifiers: Hyperlipidemia type: unspecified Qualified Code(s): E78.5 - Hyperlipidemia , unspecified (6) Obstructive sleep apnea Priority: Secondary Status: Acute Hospital course: Ms. King is a 62 year old female past medical history of asthma CHF DVT hyperlipidemia hypertension osteoporosis peripheral artery disease pulmonary embolism. Patient was recently diagnosed with heart failure in was preparing to go to cardiac rehabilitation when she developed onset of chest pain is left- sided which radiated to her back and shoulder. She presented to the pharmacy department chest x-ray with no acute process lab work was unremarkable troponins were negative 3 patient is on Coumadin due to pulmonary embolism and she is therapeutic. D-dimer was within normal limits. EKG with no ST-T wave abnormalities. Patient was admitted and underwent a nuclear cardiac stress test which she was negative for any ischemia infarct. During admission as noted patient's resting SPO2 was low 90s she does have a history of CHF and asthma no wheezing lung sounds were clear. Patient states that she has been borderline on home oxygen use. She has oxygen at night only at this time. 6 minute walk test was completed and patient did qualify for home oxygen. I did advise the patient to follow-up with her primary care physician as well as cardiology since these providers know her past and can adjust the medications accordingly. Patient will be given a prescription for home oxygen I answered the patient's questions to the past my ability. Patient verbalized understanding of discharge instructions she is hemodynamically stable at this time and is ready for discharge. Discharge discussed with: patient - Time Spent with Patient Total time spent providing and/or coordinating discharge services: - Discharge Medications Home Medications: Amlodipine Besylate 10 mg PO DAILY 12/09/17 [History] Cholecalciferol (D-3) [Vitamin D] 1,000 unit PO DAILY 12/09/17 [History] Cyanocobalamin (Vitamin B-12) [Vitamin B-12] 1,000 mcg PO MOWEFR 12/09/17 [ History] Cyclobenzaprine HCl 5 mg PO BID PRN 12/09/17 [History] Dicyclomine [Bentyl] 10 mg PO QID 12/09/17 [History] Fluticasone Propionate Nasal [Flonase] 2 spr NS DAILY PRN 12/09/17 [History] Gabapentin [Neurontin] 300 mg PO HS 12/09/17 [History] Lidocaine Patch [Lidoderm 5% patch] 1 patch TD Q12H 12/09/17 [History] Loratadine [Allergy Relief] 10 mg PO DAILY PRN 12/09/17 [History] Meloxicam 15 mg PO DAILY 12/09/17 [History] Nitroglycerin [Nitrostat] 0.4 mg SL Q5M PRN 12/09/17 [History] Pantoprazole Sodium [Protonix] 40 mg PO DAILY 12/09/17 [History] Pantoprazole [Protonix] 40 mg IV DAILY 12/09/17 [History] Sertraline [Zoloft] 100 mg PO DAILY 12/09/17 [History] Sertraline [Zoloft] 100 mg PO DAILY 12/09/17 [History] Warfarin [Coumadin] 3 mg PO Q48H 12/09/17 [History] Warfarin [Coumadin] 4 mg PO Q48H 12/09/17 [History] Allergies/Adverse Reactions: 3 Allergy/AdvReac Type Severity Reaction Status Date / Time acetaminophen [From Percocet] AdvReac Nausea Verified 12/09/17 12:59 Estrogens AdvReac blood clots Verified 12/09/17 12:59 estrogens, conjugated AdvReac blood clots Verified 12/09/17 12:59 [From Premarin] Iodinated Contrast- Oral and AdvReac extremely Verified 12/09/17 12:59 IV Dye elevates [Iodinated Contrast Media - blood IV Dye] pressure, heart palpitations Medroxyprogesterone AdvReac blood clots Verified 12/09/17 12:59 Oxycodone AdvReac Nausea Verified 12/09/17 12:59 simvastatin AdvReac myalgias Verified 12/09/17 12:59 [id number] Reductase AdvReac Muscle Pain Verified 12/10/17 20:40 Inhibitor [Statins] Date of admission: 12/09/17 13:54 Primary care physician: Makayla Handy DO Discharging clinician: Macy Barba Anticipated date of discharge: 12/11/17 - Constitutional Vitals: Temp Pulse Resp BP Pulse Ox 98.4 F 56 17 143/72 95 12/11/17 11:58 12/11/17 11:58 12/11/17 11:58 12/11/17 11:58 12/11/17 11:58 General appearance: Present: A&O X 3 - Head Head exam: Present: atraumatic, normocephalic - Eye Eye exam: Present: PERRL, conjuntiva pink, sclera anicteric Pupils: Present: PERRL - Neck Neck exam general surgery: Present: supple, trachea midline. Absent: lymphadenopathy - Respiratory Respiratory exam: Present: CTAB. Absent: accessory muscle use, rales, rhonchi, wheezes - Cardiovascular Cardiovascular exam: Present: RRR, +S1, +S2. Absent: diastolic murmur, gallop, rubs, systolic murmur - GI/Abdominal GI/Abdominal exam: Present: normal bowel sounds, soft, no peritoneal signs. Absent: distended, tenderness - Extremities Exam Extremities exam: Present: warm, radial pulses palpable and symmetrical. Absent : calf tenderness, cyanotic, pedal edema - Neurological Exam Neurological exam: Present: CN II-XII intact, oriented X3, no focal deficits. Absent: pronater drift, facial droop, speech deficit - Skin Skin exam: Present: dry, intact - Patient Status Disposition: Home, Self-Care Condition: Good Functional capacity at discharge: independent ambulation Overall status at discharge: patient is back to baseline - Discharge Instructions Instructions: Chest Pain (DC) Follow Up With: Makayla Handy DO [Primary Care Provider] - Forms: ED Satisfaction Letter Additional Instructions: Follow-up appointments: If there is not an appointment listed below, please call your physician and schedule a follow-up appointment. If you have congestive heart failure and your symptoms return, make an appointment with your physician. Medication List: Carry an up to date list of medications you are taking at all time. We have given you an updated medication list including any new medications that you have been prescribed. Please provide that list to your primary provider Symptoms: If your condition changes or you experience any of the following symptoms, notify your physician immediately: Unusual or worsening pain, fever, persistent nausea and vomiting, bleeding, increase in swelling (especially in your legs), sudden weight gain, extreme dizziness, chest pain, increased drainage or redness from a wound or incision. Go to the emergency department if you experience a problem with breathing. Weights: If you have a history of swelling or shortness of breath, weigh yourself daily and notify your physician if you have a weight gain of two or more pounds in one day or 5 or more pounds in a week. If you experience any of the warning signs for stroke: Sudden numbness or weakness of the face, arm or leg; especially on one side of the body, sudden confusion, trouble speaking or understanding, sudden trouble seeing in one or both eyes, sudden trouble walking, dizziness, loss of balance or coordination, sudden sever headache with no cause; Call 911 or go to the emergency room. Stroke is a medical emergency. Some risk factors for stroke: Age, cigarette smoking, diabetes, excessive alcohol consumption, family history , high blood pressure, overweight, physical inactivity, prior stroke, heart attack, diagnosis of carotid artery stenosis or other artery disease. If you smoke, STOP: Smoking or tobacco use significantly increases your risk of heart and lung disease. Your chance of disease greatly increases if you continue to smoke. For more information, call the [employer] tobacco quit line for smoking cessation QUIT-NOW ( ) - Diet and Activity Activity: wear oxygen at all times Diet: low fat, low cholesterol - VTE Documentation of Mechanical Device: Intermittent pneumatic compression device
[2017-12-11] MEDS ORDERED: *HR* Warfarin 1 MG TABLET PO ONE (18:00)
[2017-12-11] MEDS ORDERED: Gabapentin 300 MG CAPSULE PO SCH (21:04)
--- NOTE | 2017-12-12 07:00 | Electrocardiograph Report ---
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
== END 2017-12-11 15:18 | disposition home or self-care (01) ==
LOC: 3BNU 11:01 → EMEROO 11:01 → 3BNU 14:47
PROVIDERS: ADMIT Internal Medicine; ATTEND Hospitalist

== ENCOUNTER 2021-08-17 13:17 | Observation (INO) ==
[2021-08-17 13:49] LABS: Basophils # 0.1 K/mcL (0.0-0.2); Basophils % 0.8 %; Eosinophils # 0.3 K/mcL (0.0-0.6); Eosinophils % 4.3 %; Hematocrit 40.3 % (35.3-44.9); Hemoglobin 13.4 g/dL (11.5-15.4); Immature Granulocytes % 0.3 % (0-4); Lymphocytes # 3.5 K/mcL (0.6-4.6); Lymphocytes % 45.7 %; Mean Corpuscular HGB Conc 33.3 g/dL (31.6-35.5); Mean Corpuscular Hemoglobin 30.2 pg (28.0-33.3); Mean Corpuscular Volume 90.8 fL (83.0-100.0); Mean Platelet Volume 9.8 fL (9.4-12.4); Monocytes # 0.7 K/mcL (0.0-1.3); Monocytes % 9.5 %; Platelet Count 194 K/mcL (140-400); Red Blood Count 4.44 M/mcL (3.82-4.97); Red Cell Distribution Width 14.2 % (11.5-14.5); Segmented Neutrophils % 39.4 %; White Blood Count 7.6 K/mcL (4.3-11.1)
[2021-08-17 13:55] LABS: INR 2.8; Prothrombin Time 30.5 Seconds (9.4-12.1)
[2021-08-17 13:58] LABS: Activated Partial Thrombo Time 49.3 Seconds (26.0-36.0)
[2021-08-17] MEDS ORDERED: Ipratropium/Albuterol Neb 3 ML IH ONE (14:04)
[2021-08-17 14:09] LABS: BUN/Creatinine Ratio 30 (6-26); Blood Urea Nitrogen 20 mg/dL (8-23); Calcium 9.4 mg/dL (8.6-10.3); Carbon Dioxide 25 mEq/L (23-29); Chloride 105 mEq/L (98-107); Glucose 173 mg/dL (70-105); Osmolality,Calculated 295 (280-300); Sodium 139 mEq/L (136-145); Troponin I < 0.03 ng/mL (< 0.04); eGFR For African Americans > 60 (> 60); eGFR For Non-African Americans > 60 (> 60)
[2021-08-17] MEDS ORDERED: Aspirin 325 MG TABLET PO ONE (14:13)
[2021-08-17] MEDS ORDERED: Naloxone 0.4 MG/ML INJ IVP PRN (15:25)
[2021-08-17] MEDS ORDERED: Ondansetron 4 MG/2 ML VIAL IVP PRN (15:25)
[2021-08-17] MEDS ORDERED: Perflutren Lipid Microsphere 1.3 ML in 0.9 % Sodium Chloride 8.7 ML IVP PRN (16:40)
[2021-08-17] MEDS ORDERED: Warfarin perPT PO PRN (18:00)
[2021-08-17] MEDS ORDERED: *HR* Warfarin 3 MG TABLET PO ONE (18:00)
[2021-08-17 18:58] LABS: Triiodothyronine (T3) Free 3.01 pg/mL (2.50-3.90)
[2021-08-17 18:59] LABS: Thyroid Stimulating Hormone 1.534 mcIU/mL (0.340-5.600)
[2021-08-18 03:19] LABS: Prothrombin Time 32.8 Seconds (9.4-12.1)
[2021-08-18 03:27] LABS: BUN/Creatinine Ratio 24 (6-26); Blood Urea Nitrogen 21 mg/dL (8-23); Calcium 9.2 mg/dL (8.6-10.3); Carbon Dioxide 28 mEq/L (23-29); Chloride 107 mEq/L (98-107); Glucose 124 mg/dL (70-105); Osmolality,Calculated 296 (280-300); Potassium 3.5 mEq/L (3.5-5.1); Sodium 141 mEq/L (136-145); eGFR For African Americans > 60 (> 60); eGFR For Non-African Americans > 60 (> 60)
[2021-08-18 06:55] VITALS: O2SAT 93
[2021-08-18] MEDS ORDERED: Loratadine 10 MG TABLET PO PRN (08:17)
[2021-08-18] MEDS ORDERED: Furosemide 20 MG TABLET PO PRN (08:17)
[2021-08-18] MEDS ORDERED: Nitroglycerin 0.4 MG TAB.SUBL SL PRN (08:17)
[2021-08-18] MEDS ORDERED: Acetaminophen 325 MG TABLET PO PRN (08:20)
[2021-08-18] MEDS ORDERED: Gabapentin 300 MG CAPSULE PO SCH ×2 (09:00→21:00)
[2021-08-18] MEDS ORDERED: Regadenoson 0.4 MG/5 ML SYRINGE IVP ONE (11:01)
[2021-08-18 14:38] VITALS: BP 155/78; PULSE 56; TEMP 98.1
[2021-08-18] MEDS ORDERED: amLODIPine 5 MG TABLET PO SCH (18:00)
[2021-08-18] MEDS ORDERED: Isosorbide MONOnitrate (24 HR) 30 MG TAB.ER.24H PO SCH (18:00)
[2021-08-18] MEDS ORDERED: Ascorbic Acid 500 MG TABLET PO SCH (21:00)
== END 2021-08-18 17:40 | disposition home or self-care (01) ==
LOC: 3BNU 13:17 → EMEROOARM 13:17 → SUATTDRO 15:24 → 3BNU 17:04
PROVIDERS: ADMIT Family Medicine; ATTEND Student in an Organized Health Care Education/Training Program